=== PATIENT | female | born 1945 | race Caucasian/White ===

== ENCOUNTER → 2016-12-21 | Outpatient (CLI) | payer BC ==
[~2016-12-21] MED LIST: AFINITOR10 MG PO; ASPIRIN; ATIVAN PO; BIOTIN2500 MCG PO; CALCIUM 500 + D1 TAB; CALCIUM 600 + D PO; FEOSOL PO; FOSAMAX; LEVOTHYROXINE50 MCG PO; LEVOXYL100 MC1 PO; MULTI-VITAMIN1 TAB; PERCOCET5/325 PO; PRILOSEC PO; PROTONIX; PROZAC PO; SIMVASTATIN40 MG PO; STOOL SOFTENER PO; VITAMIN B COMPLEX; VITAMIN B12 OTC
--- NOTE | ~2016-12-21 | CT7 ---
[facility] A Service of [facility] & [facility] RADIOLOGY TEXT RESULTS PATIENT: MAGDIEL HERRERA LOCATION: [facility]AT : 45 UNIT #: [id number] AGE: [address]: Dwain Coyne MD SEX: F ORDER DR: [id number] [facility] [address] [place], [place] [address] [id number] O MR#: [id number] Acc #: [id number] NAME: MAGDIEL HERRERA : 1945 SEX: F STUDY DATE/TIME: 12/21/2016 9:19 UNIT: [facility]AT ROOM: STUDY DESCRIPTION: CT Abdomen Wo Cont Attending Physician: Dwain Coyne M.D. Referring Physician: Dwain Coyne M.D. Ordering Physician: Dwain Coyne M.D. Primary Care Physician: Chelo Crook A.P.R.N. MEDICAL IMAGING REPORT This report is preliminary unless electronic signature is present EXAM Abdomen CT, no contrast, 12/21/2016 INDICATIONS 71-year-old female with history of renal cell carcinoma, left nephrectomy, cholecystectomy, tubal ligation, hysterectomy. History of hernia repair. TECHNIQUE Noncontrast CT of the abdomen was performed. This CT exam was performed with one or more of the following radiation dose reduction techniques: automatic exposure control, adjustment of mA and/or kV according to patient size, and iterative reconstruction. COMPARISON 10/18/[address] ABDOMEN: Exam degraded by noncontrast technique. Included lung bases demonstrate emphysematous change. There is no effusion or pericardial effusion. Aorta tortuous but no aneurysm. There are granulomatous changes in the spleen. The left kidney is surgically absent, and the left adrenal gland is not visualized and probably surgically absent, as well. Right adrenal gland unremarkable. Pancreas atrophic. Gallbladder surgically absent. Liver demonstrates no new liver lesion. Tiny low-attenuation lesion in the subcapsular aspect of the right hepatic dome is unchanged and can be followed on subsequent studies. Right kidney demonstrates a probable peripelvic cyst. No hydronephrosis or radiopaque stone. There are postoperative changes of the stomach and small bowel, and the patient is status post anterior abdominal wall hernia repair. No new adenopathy or drainable fluid collection. [facility] A Service of [facility] RADIOLOGY TEXT RESULTS PATIENT: MAGDIEL HERRERA LOCATION: [facility] : 45 UNIT #: [id number] AGE: [address]: Dwain Coyne MD SEX: F ORDER DR: There is redemonstration of a left periaortic retroperitoneal node. This measures about 13 x 17 mm. Adenopathy in the aortocaval station is difficult to discern given noncontrast technique, but measures up to about 2.8 x 2.0 cm, essentially unchanged. No evidence of bowel obstruction. Osseous structures demonstrate no new suspicious bone lesion. Redemonstration of congenital-appearing abnormalities of the lumbosacral spine. IMPRESSION 1. Adenopathy in the retroperitoneum does not appear appreciably changed. This is most prominent in the left periaortic and aortocaval stations. See reference measurements above. 2. Status post left nephrectomy, cholecystectomy, probable gastric bypass and hernia repair procedures. 3. Left adrenal gland also presumably surgically absent. 4. No new suspicious bone lesion. 5. Included lung bases clear. Please see the separately dictated chest CT for further details. Dictated by... Akbar Torres M.D. THIS IS AN ELECTRONICALLY VERIFIED REPORT Akbar Torres M.D. at 12/21/2016 4:52 PM Cassie TD: 12/21/2016 16:12 JOB #: [id number] MEDICAL IMAGING REPORT Page 1 of 1 COPY
--- NOTE | ~2016-12-21 | CT57 ---
[facility] A Service of [facility] & [facility] RADIOLOGY TEXT RESULTS PATIENT: MAGDIEL HERRERA LOCATION: [facility] : 45 UNIT #: [id number] AGE: [address]: Dwain Coyne MD SEX: F ORDER DR: [id number] [facility] [address] [place], [place] [address] [id number] O MR#: [id number] Acc #: [id number] NAME: MAGDIEL HERRERA : 1945 SEX: F STUDY DATE/TIME: 12/21/2016 9:19 UNIT: [facility]AT ROOM: STUDY DESCRIPTION: CT Chest Wo Cont Attending Physician: Dwain Coyne M.D. Referring Physician: Dwain Coyne M.D. Ordering Physician: Dwain Coyne M.D. Primary Care Physician: Chelo Crook A.P.R.N. MEDICAL IMAGING REPORT This report is preliminary unless electronic signature is present EXAM CT of the chest no contrast INDICATIONS Follow up of renal malignancy. History of left nephrectomy, cholecystectomy, tubal ligation hysterectomy, hernia repairs. TECHNIQUE Noncontrast CT of the chest was performed. This CT exam was performed with one or more of the following radiation dose reduction techniques: automatic exposure control, adjustment of mA and/or kV according to patient size, and iterative reconstruction. COMPARISON 10/18/[address] CHEST: The lungs are emphysematous. No new suspicious pulmonary nodule. There are scattered areas of stable parenchymal scarring. Included thyroid unremarkable. There is no axillary adenopathy. No new pericardial effusion. Calcified granulomatous change is present in the mediastinum. Aorta demonstrates no aneurysm. The aorta is tortuous secondary to dextroscoliosis. Subcarinal lymphoid tissue, stable to smaller, measuring 13 x 26 mm. previously 15 x 33 mm. Infraclavicular lymph node adjacent to the left thyroid lobe measures 9 mm on today's exam, previously 11 mm. The adjacent similar sized node on the left also stable. Included upper abdomen demonstrates granulomatous change of the spleen. Left kidney surgically absent. Postop changes related to the stomach and small bowel present. No new liver lesion. Osseous structures demonstrate STS. [facility] A Service of [facility] & [facility] RADIOLOGY TEXT RESULTS PATIENT: MAGDIEL HERRERA LOCATION: [facility] : 45 UNIT #: [id number] AGE: [address]: Dwain Coyne MD SEX: F ORDER DR: spinal degenerative change. There is no new suspicious bone lesion. No compression fracture. IMPRESSION 1. Stable to interval decrease in size of infraclavicular and subcarinal lymph nodes as described. No new adenopathy. 2. The lungs are emphysematous. No new suspicious pulmonary nodule. Stable areas of scarring, as described above. 3. Upper abdomen demonstrates no acute finding. Postop changes as described. 4. Degenerative change of the thoracolumbar spine and dextroscoliosis. Dictated by... Akbar Torres M.D. THIS IS AN ELECTRONICALLY VERIFIED REPORT Akbar Torres M.D. at 12/21/2016 4:52 PM Csasie TD: 12/21/2016 15:56 JOB #: [id number] MEDICAL IMAGING REPORT Page 1 of 1 COPY
== END | disposition home or self-care (01) ==
LOC: CCAT 09:04
DX: C77.1 Secondary and unspecified malignant neoplasm of intrathoracic lymph nodes (principal); C64.2 Malignant neoplasm of left kidney, except renal pelvis; R53.0 Neoplastic (malignant) related fatigue; J43.9 Emphysema, unspecified; J98.4 Other disorders of lung; M47.815 Spondylosis without myelopathy or radiculopathy, thoracolumbar region; M41.9 Scoliosis, unspecified; Z98.890 Other specified postprocedural states; Z90.5 Acquired absence of kidney; Z90.49 Acquired absence of other specified parts of digestive tract
CPT/HCPCS: 71250; 74150

== ENCOUNTER → 2017-04-18 | Outpatient (CLI) | payer BC ==
--- NOTE | ~2017-04-18 | CT57 ---
[facility] A Service of [facility] & [facility] RADIOLOGY TEXT RESULTS PATIENT: MAGDIEL HERRERA [facility] UNIT #: [id number] AGE: [address]: Dwain Coyne MD SEX: F ORDER DR: [id number] [facility] [address] [place], [place] [address] [id number] O MR#: [id number] [facility] #: [id number] NAME: MAGDIEL HERRERA : 1945 SEX: F STUDY DATE/TIME: 04/18/2017 09:51 [facility] ROOM: STUDY DESCRIPTION: CT Chest Wo Cont Attending Physician: Dwain Coyne M.D. Referring Physician: Dwain Coyne M.D. Ordering Physician: Dwain Coyne M.D. Primary Care Physician: Chelo Crook A.P.R.N. MEDICAL IMAGING REPORT This report is preliminary unless electronic signature is present EXAM CT chest without contrast 04/18/2017 0951 hours CLINICAL HISTORY 72-year-old with history of left renal cell carcinoma with malignant adenopathy in the chest for followup. No interval therapy reported. No acute complaints today. Chronic fatigue and anorexia. COMPARISON CT chest 12/21/2016. TECHNIQUE Helical noncontrasted images were obtained from the thoracic inlet through the adrenal glands. Sagittal and coronal reconstructions were performed. Total exam DLP for the chest, abdomen, and pelvis exam today is 962 mGy-cm. This CT exam was performed with one or more of the following radiation dose reduction techniques: Automatic exposure control, adjustment of mA and/or kV according to patient size, and iterative reconstruction. FINDINGS Images through the thoracic inlet demonstrate no thyroid lesion. Two left-sided superior mediastinal/infraclavicular lymph nodes are relatively stable one measuring 10 mm and one 8 mm, previously 9 mm and 9 mm. Images through the chest demonstrate normal aorta. There are calcified nodes in the left hilum. There is a subcarinal node measuring 2.4 x 1.1 cm, previously 2.6 x 1.3 cm consistent with decrease in size. No new nodes are seen. There is a small amount of anterior pericardial fluid or pericardial thickening similar to prior study. The lungs demonstrate emphysematous changes with no new pulmonary parenchymal nodules. There is very minimal linear density at the extreme STS. [facility] A Service of [facility] RADIOLOGY TEXT RESULTS PATIENT: MAGDIEL HERRERA [facility] LOCATION: [facility] : 45 UNIT #: [id number] AGE: [address]: Dwain Coyne MD SEX: F ORDER DR: lung bases dependently and posteriorly likely atelectasis. There is linear scarring in the lingula and right middle lobe unchanged. Please see separately dictated CT of the abdomen and pelvis for findings below the hemidiaphragms. IMPRESSION 1. Small lymph nodes in the left superior mediastinum inferior to the clavicle are stable. The small subcarinal lymph node is decreased in size slightly from 12/21/2016. No new or increasing nodes are seen. 2. Emphysematous changes with minimal linear to ground-glass density at the extreme lung bases new on today's exam likely atelectasis. No suspicious lung nodules. 3. Please see separately dictated report of the CT abdomen and pelvis for findings below the hemidiaphragms. Dictated by... Chuyita Hanley M.D. THIS IS AN ELECTRONICALLY VERIFIED REPORT Chuyita Hanley M.D. at 04/19/2017 9:32 AM CARROLL/isreal TD: 04/18/2017 14:22 JOB #: [id number] MEDICAL IMAGING REPORT Page 1 of 1 COPY
--- NOTE | ~2017-04-18 | CT4 ---
[facility] A Service of [facility] & [facility] RADIOLOGY TEXT RESULTS PATIENT: MAGDIEL HERRERA [facility] LOCATION: [facility] : 45 UNIT #: [id number] AGE: [address]: Dwain Coyne MD SEX: F ORDER DR: [id number] [facility] [address] [place], [place] [address] [id number] O MR#: [id number] Acc #: [id number] NAME: MAGDIEL HERRERA : 1945 SEX: F STUDY DATE/TIME: 04/18/2017 09:51 UNIT: [facility] ROOM: STUDY DESCRIPTION: CT Abd and Pelv Wo Cont Attending Physician: Dwain Coyne M.D. Referring Physician: Dwain Coyne M.D. Ordering Physician: Dwain Coyne M.D. Primary Care Physician: Chelo Crook A.P.R.N. MEDICAL IMAGING REPORT This report is preliminary unless electronic signature is present EXAM CT abdomen and pelvis without contrast, 04/18/2017 09:51 hours HISTORY 72-year-old with history of kidney cancer, malignant intrathoracic lymph nodes. Neoplastic related fatigue and anorexia. Patient presents for 6-month followup. Observation for suspected malignant neoplasm. COMPARISON CT abdomen, 12/21/2016 TECHNIQUE Helical noncontrasted images were obtained from the lung bases through the pubic symphysis. Sagittal and coronal reconstructions were performed. Oral contrast only was administered. Total exam DLP for the chest, abdomen and pelvis exam is 962 mGy-cm. This CT exam was performed with one or more of the following radiation dose reduction techniques: automatic exposure control, adjustment of mA and/or kV according to patient size, and iterative reconstruction. FINDINGS The unopacified liver appears normal. The spleen is unremarkable. The patient is post left nephrectomy with displacement of the spleen and tail of the pancreas to the former renal fossa without change. There are surgical clips at the left periaortic region. Patient has retroperitoneal lymphadenopathy with measured lymph node just inferior to the left-sided surgical clips to the left of the aorta at 1.7 x 1.6 cm, previously 1.7 x 1.3 cm. This is felt likely unchanged. The measured aortocaval lymph node is 2.2 x 2.1 cm, previously 2.8 x 2.0 cm. This is felt stable to slightly smaller. It is somewhat difficult to accurately measure these nodes given the lack of intravenous contrast. No definite new nodes are seen. The right adrenal gland and right kidney appear normal. I cannot [facility] A Service of [facility] RADIOLOGY TEXT RESULTS PATIENT: MAGDIEL HERRERA [facility] LOCATION: [facility] : 45 UNIT #: [id number] AGE: [address]: Dwain Coyne MD SEX: F ORDER DR: derrick the left adrenal gland. It may be surgically absent. The stomach demonstrates postoperative change of gastric bypass. There is no small bowel distension. The opacified small bowel is normal. Question is raised of mild bowel wall thickening at the terminal ileum and cecum. These loops of bowel are poorly distended which could account for this finding. Correlate with any symptoms. No colonic lesion is seen. There is an area of colonic anastomosis in the left upper quadrant having a normal appearance. The abdominal aorta is normal in caliber with atherosclerotic calcifications present. CT pelvis demonstrates colonic diverticula in the sigmoid colon. The uterus is absent. There is no adnexal mass or pelvic lymphadenopathy. There are no congenital abnormalities of the mid and lower lumbar spine with underlying scoliosis and diastematomyelia. 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 No lytic or blastic bone lesions are seen. IMPRESSION 1. Exam is limited by the lack of intravenous contrast. There is left nephrectomy change with no local recurrence. 2. There are persistent abnormal retroperitoneal lymph nodes. The measured nodes in the aortocaval region and the left periaortic region are stable to slightly smaller than on 12/21/2016. 3. No liver lesion seen. The right adrenal gland is normal. 4. Question is raised of bowel wall thickening at the terminal ileum and cecum and ascending colon. These loops are non-opacified and nondistended which could account for this finding. Correlate with any clinical symptoms. 5. 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 No lytic or blastic lesions. No change from prior exam. Dictated by... Chuyita Hanley M.D. THIS IS AN ELECTRONICALLY VERIFIED REPORT Chuyita Hanley M.D. at 04/19/2017 9:32 AM Alia TD: 04/18/2017 14:39 JOB #: [id number] MEDICAL IMAGING REPORT Page 1 of 1 COPY
== END | disposition home or self-care (01) ==
LOC: CCAT 08:08
DX: C77.1 Secondary and unspecified malignant neoplasm of intrathoracic lymph nodes (principal); J98.4 Other disorders of lung; Z95.0 Presence of cardiac pacemaker; Z85.528 Personal history of other malignant neoplasm of kidney
CPT/HCPCS: 71250; 74176